=== PATIENT | male | born 1985 | race Two or more races ===

== ENCOUNTER → 2024-08-05 | Outpatient (CLI) | payer MEDICAID, SELFPAY ==
--- NOTE | 2024-08-05 07:00 | XR_ITS ---
Exam: MRI knee without contrast, left Date and time of exam: August 05, 2024 0714 hours INDICATIONS: Medial knee pain beginning 2 years ago Technique: Multiple axial, coronal, and sagittal sections on the knee have been obtained. T2-Weighted sagittal, fat-suppressed images, TR 3,500, TE 62, T2 weighted coronal fat-saturated images, TR 3,500, TE 62 Proton density sagittal sections, TR 1800, TE 31. T-1 weighted coronal images, TR 524, TE 13.0 Findings: Medial meniscus anterior horn intact. Medial meniscus, body is horizontal linear tear communicating inferior articular margin. Posterior horn medial meniscus horizontal linear tear communicating inferior articular margin. Lateral meniscus anterior horn is intact Lateral meniscus, body is intact Posterior horn lateral meniscus is intact Anterior cruciate ligament appears intact. Posterior cruciate ligament appears intact. Knee effusion is small. Quadriceps and patellar tendons appear intact. There is no evidence of tendinosis. Inflammatory change or fracture of Hoffa's fat pad is not seen. Medial patellar facet demonstrates no thinning. Lateral patellar facet cartilage demonstrates no thinning. Trochlear cartilage demonstrates no thinning. Marrow signal adequate. Medial collateral ligament appears intact. No meniscocapsular separation is seen. Illiotibial band and fibular collateral ligament are intact. Biceps femoris tendons appear intact. Medial femoral condylar articular cartilage demonstrates mild thinning. Lateral femoral condylar articular cartilage demonstratesmild thinning. Tibial plateau cartilage demonstrates mild thinning. Impression: Horizontal linear tears body and posterior horn medial meniscus
== END | disposition home or self-care (01) ==
PROVIDERS: Referring Provider Chiropractor; Visit Provider Chiropractor
DX: S83.242A Other tear of medial meniscus, current injury, left knee, initial encounter (principal); X58.XXXA Exposure to other specified factors, initial encounter
CPT/HCPCS: 73721

== ENCOUNTER → 2025-03-17 | Outpatient (CLI) | payer MEDICAID, SELFPAY ==
--- NOTE | 2025-03-17 16:00 | XR_ITS ---
EXAMINATION: Testicular sonography complete TECHNIQUE: Grayscale sonographic images testes, assessment arterial inflow and venous outflow Doppler spectral analysis color flow analysis Date and time: March 17, 2025, 1553 hours INDICATION: Testicular swelling and pain beginning 1 year ago. FINDINGS: Right testis 5.2 cm epididymis 11 mm Arterial flow the testicle. No testicular mass. Mild varicocele. Minimal hydrocele Left testis 5.2 cm epididymis 1.4 cm 7 mm epididymal cyst Arterial flow the testicle. No testicular mass Minimal hydrocele IMPRESSION: No testicular torsion or testicular mass Mild right varicocele Minimal bilateral hydrocele
== END | disposition home or self-care (01) ==
LOC: CDIM 15:35
PROVIDERS: PCP Nurse Practitioner Family; Referring Provider Nurse Practitioner Family; Visit Provider Nurse Practitioner Family
DX: I86.1 Scrotal varices (principal); N43.3 Hydrocele, unspecified
CPT/HCPCS: 76870